=== PATIENT | female | born 1970 | race Caucasian/White ===

== ENCOUNTER 2020-08-23 19:03 | Emergency (ER) | payer OTHER ==
[2020-08-23 19:18] VITALS: Wt 59.1 kg
[2020-08-23] MEDS ORDERED: STERAPRED DS 1010 MG PO (20:54)
[2020-08-23] MEDS ORDERED: EPIPEN 2-P0.3 MG/0.3 IM (20:54)
[2020-08-23 21:07] VITALS: BP 122/60
== END 2020-08-23 21:08 | disposition home or self-care (01) ==
LOC: D.ER 19:03
DX: T78.40XA Allergy, unspecified, initial encounter (principal); J45.909 Unspecified asthma, uncomplicated; T78.3XXA Angioneurotic edema, initial encounter; Z72.0 Tobacco use; R06.02 Shortness of breath